=== PATIENT | male | born 1965 | race Asian ===

== ENCOUNTER 2017-12-03 01:34 | Emergency (ER) | payer MEDICAID, OTHER ==
[~2017-12-03] VITALS: Ht 172.7 cm; Wt 78.6 kg
[~2017-12-03 01:34] MED LIST: CEPH500; TB MEDS
[2017-12-03] MEDS ORDERED: ALBU8.5H8 IH (01:42)
[2017-12-03] MEDS ORDERED: LISI-662 PO (01:42)
[2017-12-03] MEDS ORDERED: BENZ-51 PO (01:42)
[2017-12-03] MEDS ORDERED: DIPH50CA35 PO (01:42)
[2017-12-03] MEDS ORDERED: GuaiFENesin [SUGAR-FREE] 200 MG/10 ML SOLUTION UDCUP PO ONE (02:45)
[2017-12-03] MEDS ORDERED: HYDROCODONE/ACETAMINOPHEN 5-325 MG TABLET PO ONE (02:45)
[2017-12-03] MEDS ORDERED: PredniSONE 20 MG TABLET PO ONE (02:45)
[2017-12-03 02:57] LABS: EOSINOPHILS % (AUTO) 2.6 % (1.0-6.0); HEMATOCRIT 44.1 % (41-53); HEMOGLOBIN 15.3 g/dL (13.5-17.5); LYMPHOCYTES # (AUTO) 2.8 K/uL (1.0-4.8); LYMPHOCYTES % (AUTO) 24.3 % (22.0-44.0); MEAN CORPUSCULAR HEMOGLOBIN 30.8 pg (26.0-34.0); MEAN CORPUSCULAR HGB CONC 34.7 G/dL (31.0-37.0); MEAN CORPUSCULAR VOLUME 89 fL (80-100); MONOCYTES # (AUTO) 1.1 K/uL (0.1-1.0); MONOCYTES % (AUTO) 9.6 % (2.0-9.0); NEUTROPHILS # (AUTO) 7.1 K/uL (1.8-7.7); NEUTROPHILS % (AUTO) 62.5 % (40.0-70.0); PLATELET COUNT (AUTO) 364 K/uL (150-450); RED BLOOD CELL COUNT(AUTO) 4.97 MIL/uL (4.50-5.90); RED CELL DISTRIBUTION WIDTH 12.9 % (11.5-14.5)
[2017-12-03 03:18] LABS: ANION GAP 9 mmol/L (8-16); CALCIUM, TOTAL 8.7 mg/dL (8.8-10.5); CARBON DIOXIDE 28 mmol/L (22-29); CHLORIDE 103 mmol/L (98-107); CREATININE 0.87 mg/dL (0.60-1.30); GLOMERULAR FILTR. RATE CALC > 60 mL/min (>60); GLUCOSE,RANDOM 134 mg/dL (70-110); POTASSIUM 4.2 mmol/L (3.5-5.1); SODIUM SERUM 140 mmol/L (136-145); UREA NITROGEN, BLOOD 9 mg/dL (7-18)
[2017-12-03 03:23] LABS: ALANINE AMINOTRANSFERASE 25 U/L (12-78); ALBUMIN 3.6 g/dL (3.4-5.0); ALKALINE PHOSPHATASE 116 U/L (46-116); ASPARTATE AMINOTRANSFERASE 20 U/L (15-37); BILIRUBIN,TOTAL 0.2 mg/dL (0.1-1.0); TOTAL PROTEIN, SERUM 7.2 g/dL (6.4-8.2)
[2017-12-03 03:44] VITALS: BP 145/92
== END 2017-12-03 03:48 | disposition home or self-care (01) ==
LOC: EMS 01:35
DX: J45.901 Unspecified asthma with (acute) exacerbation (principal); J02.9 Acute pharyngitis, unspecified; I10 Essential (primary) hypertension; F17.210 Nicotine dependence, cigarettes, uncomplicated
CPT/HCPCS: 36415; 71045; 80053; 84484; 85025; 93005; 99285; 99406; J7512

== ENCOUNTER 2018-03-24 07:28 | Emergency (ER) | payer MEDICAID ==
[~2018-03-24] VITALS: Ht 172.7 cm; Wt 79.5 kg
[~2018-03-24 07:28] MED LIST changes: +ALBU8.5H8 IH; +BENZ-51 PO; -CEPH500; +DIPH50CA35 PO; +LISI-662 PO; -TB MEDS
[2018-03-24] MEDS ORDERED: DiphenhydrAMINE HCL 50 MG/ML VIAL IM ONE (08:00)
[2018-03-24] MEDS ORDERED: PredniSONE 20 MG TABLET PO ONE (08:00)
[2018-03-24 09:30] VITALS: BP 153/81
== END 2018-03-24 09:35 | disposition home or self-care (01) ==
LOC: EMS 07:30
DX: L50.9 Urticaria, unspecified (principal); F17.210 Nicotine dependence, cigarettes, uncomplicated; I10 Essential (primary) hypertension; Z79.899 Other long term (current) drug therapy
CPT/HCPCS: 96372; 99283; 99406; J1200; J7512

== ENCOUNTER 2024-05-14 07:11 | Emergency (ER) | payer MEDICAID ==
[~2024-05-14] VITALS: Ht 172.7 cm; Wt 72.7 kg
[~2024-05-14 07:11] MED LIST changes: +BENZ-227 PO; -BENZ-51 PO; -LISI-662 PO; +LISI-894 PO
[2024-05-14 07:17] VITALS: BP 174/98; PULSE 75; RESP 18; TEMP 97.9; O2SAT 99
[2024-05-14] MEDS: KETOROLAC TROMETHAMINE 60 MG/2 ML VIAL IM ONE (08:04)
[2024-05-14] MEDS: ACETAMINOPHEN 500 MG TABLET PO ONE (08:05)
[2024-05-14] MEDS: METHOCARBAMOL 500 MG TABLET PO ONE (08:05)
[2024-05-14] MEDS ORDERED: IBUP-1554 PO (11:14)
[2024-05-14] MEDS ORDERED: METH-659 PO (11:14)
[2024-05-14] MEDS ORDERED: ACET-66 PO (11:14)
[2024-05-14] MEDS ORDERED: HydrALAZINE HCL 20 MG/ML VIAL IVP ONE (11:15)
== END 2024-05-14 11:30 | disposition home or self-care (01) ==
LOC: EMS 07:11
DX: M48.54XA Collapsed vertebra, not elsewhere classified, thoracic region, initial encounter for fracture (principal); E78.00 Pure hypercholesterolemia, unspecified; I10 Essential (primary) hypertension; X50.0XXA Overexertion from strenuous movement or load, initial encounter; Y93.89 Activity, other specified; Y92.89 Other specified places as the place of occurrence of the external cause; Y99.8 Other external cause status
CPT/HCPCS: 99284; 72070; 72100; 96372; J1885

== ENCOUNTER 2024-06-28 00:20 | Emergency (ER) | payer MEDICAID ==
[~2024-06-28] VITALS: Ht 172.7 cm; Wt 72.7 kg
[~2024-06-28 00:20] MED LIST changes: +ACET-66 PO; +IBUP-1554 PO; +METH-659 PO
[2024-06-28 00:44] LABS: BASOPHILS % (AUTO) 0.8 % (0.0-2.0); EOSINOPHILS % (AUTO) 1.2 % (1.0-6.0); HEMATOCRIT 48.9 % (41-53); LYMPHOCYTES # (AUTO) 3.4 K/uL (1.0-4.8); LYMPHOCYTES % (AUTO) 31.2 % (22.0-44.0); MEAN CORPUSCULAR HEMOGLOBIN 32.4 pg (26.0-34.0); MEAN CORPUSCULAR HGB CONC 34.8 G/dL (31.0-37.0); MEAN CORPUSCULAR VOLUME 93 fL (80-100); MONOCYTES # (AUTO) 0.8 K/uL (0.1-1.0); MONOCYTES % (AUTO) 7.1 % (2.0-9.0); NEUTROPHILS # (AUTO) 6.5 K/uL (1.8-7.7); NEUTROPHILS % (AUTO) 59.7 % (40.0-70.0); PLATELET COUNT (AUTO) 381 K/uL (150-450); RED BLOOD CELL COUNT(AUTO) 5.27 MIL/uL (4.50-5.90); RED CELL DISTRIBUTION WIDTH 12.7 % (11.5-14.5); WHITE BLOOD COUNT (AUTO) 10.9 K/uL (4.5-11.0)
[2024-06-28 00:54] LABS: ANION GAP 2 mmol/L (8-16); CALCIUM, TOTAL 8.8 mg/dL (8.8-10.5); CARBON DIOXIDE 29 mmol/L (22-29); CHLORIDE 102 mmol/L (98-107); CREATININE 0.99 mg/dL (0.60-1.30); GLOMERULAR FILTR. RATE CALC > 60 mL/min (>60); GLUCOSE,RANDOM 127 mg/dL (70-110); POTASSIUM 3.8 mmol/L (3.5-5.1); SODIUM SERUM 133 mmol/L (136-145); UREA NITROGEN, BLOOD 11 mg/dL (7-18)
[2024-06-28 01:03] LABS: TROPONIN I-HIGH SENSITIVITY 19 ng/L (<76)
[2024-06-28 01:12] LABS: B-TYPE NATRIURETIC PEPTIDE 13 pg/mL (0-100)
[2024-06-28 01:18] LABS: ALANINE AMINOTRANSFERASE 35 U/L (12-78); ALBUMIN 4.1 g/dL (3.4-5.0); ALKALINE PHOSPHATASE 122 U/L (46-116); ASPARTATE AMINOTRANSFERASE 36 U/L (15-37); BILIRUBIN,TOTAL 0.7 mg/dL (0.1-1.0); CREATINE KINASE, TOTAL ONLY 218 U/L (39-308)
[2024-06-28 02:31] LABS: INR 1.1 (0.9-1.1); PROTHROMBIN TIME 11.4 SEC (9.4-11.6)
[2024-06-28 02:44] LABS: APPEARANCE,URINE CLEAR (CLEAR); BILIRUBIN,URINE NEGATIVE (NEGATIVE); COLOR,URINE LIGHT YELLOW (YELLOW); GLUCOSE, URINE (UA) NEGATIVE (NEGATIVE); KETONES,URINE NEGATIVE (NEGATIVE); LEUKOCYTE ESTERASE ,URINE NEGATIVE (NEGATIVE); NITRATE,URINE NEGATIVE (NEGATIVE); OCCULT BLOOD,URINE SMALL (NEGATIVE); PH,URINE 5.5 (5.0-8.0); PROTEIN,URINE TRACE mg/dL (NEGATIVE); UROBILINOGEN,URINE <=1.0 mg/dL (<=1.0)
[2024-06-28 02:59] LABS: TROPONIN I-HIGH SENSITIVITY 19 ng/L (<76)
[2024-06-28 03:02] LABS: BACTERIA,URINE Rare /HPF (None Seen); RBC,URINE 0-2 /HPF (0-2); WBC,URINE None Seen /HPF (0-5)
[2024-06-28 03:40] VITALS: BP 155/96; PULSE 63; RESP 20; O2SAT 97
== END 2024-06-28 03:44 | disposition home or self-care (01) ==
LOC: EMS 00:20
DX: R07.89 Other chest pain (principal); E78.00 Pure hypercholesterolemia, unspecified; I10 Essential (primary) hypertension; Z98.890 Other specified postprocedural states
CPT/HCPCS: 71045; 80053; 81001; 82550; 83880; 84484; 85025; 85610; 85730; 93005; 99285; 36415-L1; 36415-TC